=== PATIENT | male | born 1935 | race Caucasian/White ===

== ENCOUNTER 2018-06-09 16:01 | Inpatient (IN) | payer OTHER ==
[2018-06-09 16:33] LABS: PLATELET COUNT 240 10^3/uL (150-400)
--- NOTE | 2018-06-09 16:37 | EDPHY ---
H & P Stated Complaint: Pt found to be bradycardic by staff, c/o light-headed, denies new meds Time Seen by Provider: 06/09/18 16:11 HPI/ROS: CHIEF COMPLAINT: Dizziness, unsteady gait Limitations: Poor historian, no family present HISTORY OF PRESENT ILLNESS: 82-year-old male with diabetes presents with a 2 week history of dizziness and unsteady gait. He arrived in [place] from [place] 2 weeks ago. Onset of dizziness and unsteady gait on arrival. The dizziness occurs with standing and with walking. Also has an unsteady gait and is using a cane. Difficulty doing his usual activities because of dizziness. He also feels that his hands are shaky, which is new for him. No recent illness and no recent change in medications. However, he does not know what medications he takes. No chest pain, shortness of breath or headache. No head injury. No history of cardiopulmonary disease. REVIEW OF SYSTEMS: complete 10 point ROS reviewed and is negative except for the noted elements in the HPI Source: Patient - Personal History Current Tetanus/Diphtheria Vaccine: Yes - Medical/Surgical History Hx Asthma: No Hx Chronic Respiratory Disease: No Hx Diabetes: Yes Hx Cardiac Disease: No Hx Renal Disease: No Hx Cirrhosis: No Hx Alcoholism: No Hx HIV/AIDS: No Hx Splenectomy or Spleen Trauma: No Other PMH: Parkinsons, appendectomy, NIDDM - Social History Smoking Status: Former smoker Alcohol Use: Sober Drug Use: None - Physical Exam Exam: General Appearance: Alert, pleasant, forgetful Eyes: Pupils equal and round, no conjunctival pallor or injection ENT, Mouth: Mucous membranes moist Neck: Normal inspection Respiratory: Lungs are clear to auscultation Cardiovascular: Bradycardia, 2/6 systolic murmur Gastrointestinal: Abdomen is soft and nontender Neurological: Alert, oriented to person and place, resting tremor, nonfocal exam, gait not assessed Skin: Warm and dry Extremities: Normal inspection Psychiatric: Mood and affect normal Constitutional: Initial Vital Signs Temperature (C) 36.8 C 06/09/18 16:09 Heart Rate 38 L 06/09/18 16:09 Respiratory Rate 16 06/09/18 16:09 Blood Pressure 148/70 H 06/09/18 16:09 O2 Sat (%) 97 06/09/18 16:09 O2 Delivery Mode Room Air Allergies/Adverse Reactions: carbamazepine [From Tegretol] Allergy (Verified 06/09/18 16:09) Home Medications: Medication Instructions Recorded Aspirin EC [Aspirin EC 81 mg (*)] 81 mg PO HS 06/09/18 Atorvastatin Calcium [Lipitor 20 20 mg PO HS 06/09/18 mg (*)] Calcium Carbonate [Tums 500MG (*)] 250 mg PO DAILY 06/09/18 DULoxetine [Cymbalta 30 MG (*)] 90 mg PO DAILY 06/09/18 Finasteride [Proscar 5 MG (*)] 5 mg PO HS 06/09/18 [place] Carbonate ER [Eskalith Cr 450 mg PO HS 06/09/18 450 mg (*)] Losartan Potassium [Cozaar 50 mg 50 mg PO HS 06/09/18 (*)] Methylphenidate HCl [Concerta] 54 mg PO DAILY 06/09/18 Modafinil [Provigil] 400 mg PO DAILY 06/09/18 Nateglinide [Nateglinide] 120 mg PO TIDMEAL 06/09/18 Pantoprazole Sodium 40 mg PO DAILY 06/09/18 Polyethylene Glycol 3350 [Miralax 17 gm PO HS 06/09/18 17 gm (*)] Tamsulosin HCl [Flomax 0.4 MG (*)] 0.4 mg PO HS 06/09/18 diphenhydrAMINE [Benadryl 25 MG 25 mg PO DAILY PRN 06/09/18 (*)] metFORMIN HCL [Glucophage 500 mg 1,000 mg PO DAILY 06/09/18 (*)] traZODone [traZODONE 50MG (*)] 75 mg PO HS 06/09/18 Medical Decision Making - Diagnostics EKG Interpretation: EKG interpreted by me reveals sinus bradycardia, rate of 37, no ST or T segment changes. Interpretation: Abnormal EKG Imaging Results: CT scan of the brain read by the radiologist reveals atrophy, no acute infarct or hemorrhage. Imaging: Discussed imaging studies w/ comfort filler Radiologist ED Course/Re-evaluation: This patient presents with a 2 week history of dizziness and unsteady gait. Stat EKG reveals sinus bradycardia, rate 37. This bradycardia is most likely the etiology of his dizziness and unsteady gait. Certainly, his Parkinson's disease may be contributing. Neurologic exam is nonfocal, will obtain a CT scan of the brain to further evaluate. Initial troponin is normal and I do not suspect acute coronary syndrome in this patient. Observation of this patient in the emergency department; satellite project site monitor revealed sinus rhythm throughout, rate 35-60. Blood pressure remained adequate. The hospitalist service was consulted for admission. I consulted Dr. Rigo Villanueva and he will see the patient in the hospital. Differential Diagnosis: Altered mental status including but not limited to hypoglycemia, infectious process, electrolyte abnormality, head injury, CVA, and intoxicants. - Data Points Laboratory Results: Laboratory Results 06/09/18 16:19 06/09/18 16:19 Medications Given: Aspirin Buffered (Aspirin Ec) 81 mg PO HS [facility] Stop: 12/06/18 20:59 Last Admin: 06/09/18 21:56 Dose: 81 mg Atorvastatin Calcium (Lipitor) 20 mg PO HS [facility] Stop: 12/06/18 20:59 Last Admin: 06/09/18 21:54 Dose: 20 mg Calcium Carbonate (Tums) 250 mg PO DAILY [facility] Stop: 12/07/18 08:59 Last Admin: 06/10/18 08:40 Dose: 250 mg Duloxetine HCl (Cymbalta) 90 mg PO DAILY [facility] Stop: 12/07/18 08:59 Last Admin: 06/10/18 08:40 Dose: 90 mg Finasteride (Proscar) 5 mg PO HS [facility] Stop: 12/06/18 20:59 Last Admin: 06/09/18 21:55 Dose: 5 mg Insulin Human Lispro (Humalog Lispro) 0 unit SC TIDMEAL [facility] PRN Reason: Protocol Stop: 12/07/18 07:59 Last Admin: 06/10/18 12:37 Dose: Not Given Losartan Potassium (Cozaar) 50 mg PO HS [facility] Stop: 12/06/18 20:59 Last Admin: 06/09/18 21:54 Dose: 50 mg Melatonin (Melatonin) 3 - 6 mg PO HS PRN PRN Reason: Sleep/Insomnia Stop: 12/07/18 01:41 Last Admin: 06/10/18 02:11 Dose: 6 mg Miscellaneous Medication (Methylphenidate Hcl [Concerta]) 54 mg PO DAILY [facility] Stop: 12/07/18 08:59 Last Admin: 06/10/18 10:28 Dose: Not Given Miscellaneous Medication (Modafinil [Provigil]) 400 mg PO DAILY [facility] Stop: 12/07/18 08:59 Last Admin: 06/10/18 10:28 Dose: Not Given Pantoprazole Sodium (Protonix) 40 mg PO DAILY [facility] Stop: 12/07/18 08:59 Last Admin: 06/10/18 08:41 Dose: 40 mg Senna/Docusate Sodium (Senokot-S) 1 - 2 tab PO BID [facility] PRN Reason: Protocol Stop: 12/06/18 20:59 Last Admin: 06/10/18 09:59 Dose: Not Given Tamsulosin HCl (Flomax) 0.4 mg PO HS [facility] Stop: 12/06/18 20:59 Last Admin: 06/09/18 21:56 Dose: 0.4 mg Trazodone HCl (Trazodone) 75 mg PO HS [facility] Stop: 12/06/18 20:59 Last Admin: 06/09/18 21:55 Dose: 75 mg Discontinued Medications Sodium Chloride (Ns) 1,000 mls @ 75 mls/hr IV CONT [facility] Stop: 06/10/18 08:19 Last Admin: 06/09/18 20:01 Dose: 1,000 mls Point of Care Test Results: Chemistry 06/09/18 16:23 POC Troponin I 0.00 ng/mL ng/mL (0.00-0.08) Departure - Departure Disposition: [facility] Acute Condition: Fair
[2018-06-09] MEDS ORDERED: ACETAMINOPHEN 325 MG TAB PO PRN (17:46)
[2018-06-09] MEDS ORDERED: ONDANSETRON 4 MG/2 ML VIAL IVP PRN (17:46)
[2018-06-09] MEDS ORDERED: ONDANSETRON DISINTEGRATING 4 MG TAB PO PRN (17:46)
[2018-06-09] MEDS ORDERED: LACTULOSE 20 GM/30 ML UDCUP PO PRN (18:02)
[2018-06-09] MEDS ORDERED: POLYETHYLENE GLYCOL 3350 17 GM PKT PO PRN (18:02)
[2018-06-09] MEDS ORDERED: BISACODYL 10 MG SUPP PR PRN (18:02)
[2018-06-09] MEDS ORDERED: MAGNESIUM HYDROXIDE 30 ML UDCUP PO PRN (18:02)
--- NOTE | 2018-06-09 18:02 | PDGENHP ---
History and Physical - Chief Complaint Dizziness, unsteady gait - History of Present Illness This is an 82 y/o male w/hx of NIDDM, Parkinson's w/action tremor however not challenged w/Aricept b/c he refused, bipolar disorder, ADD and neuropathy who presents to the ED w/his daughter c/o 2 weeks worth of dizziness and unsteady gait while upright and ambulating. He moved from [place] 2 weeks ago and reports ever since being in [place], these symptoms have been present. Before , he used his cane sparingly but apparently while in [place], he was told by healthcare personnel to use it more often than he is. Now he reports needing the cane when he is upright and moving around consistently. He has difficulty performing normal tasks like taking his medications; for the last 4 days, he has not taken his home medications. Endorses productive cough w/white colored sputum and nasal congestion. Endorses constipation. Denies CP, palpitations, nausea, vomiting, diarrhea, fever or chills. He is being admitted for further testing and monitoring. History Information - Allergies/Home Medication List Allergies/Adverse Reactions: carbamazepine [From Tegretol] Allergy (Verified 06/09/18 16:09) Home Medications: Aspirin EC [Aspirin EC 81 mg (*)] 81 mg PO HS 06/09/18 [Last Taken Unknown] Atorvastatin Calcium [Lipitor 20 mg (*)] 20 mg PO HS 06/09/18 [Last Taken ] Calcium Carbonate [Tums 500MG (*)] 250 mg PO DAILY 06/09/18 [Last Taken 05/26/18 ] DULoxetine [Cymbalta 30 MG (*)] 90 mg PO DAILY 06/09/18 [Last Taken 05/26/18] Finasteride [Proscar 5 MG (*)] 5 mg PO HS 06/09/18 [Last Taken 05/26/18] [place] Carbonate ER [Eskalith Cr 450 mg (*)] 450 mg PO HS 06/09/18 [Last Taken 06/08/18 21:00] Losartan Potassium [Cozaar 50 mg (*)] 50 mg PO HS 06/09/18 [Last Taken 05/26/18] Methylphenidate HCl [Concerta] 54 mg PO DAILY 06/09/18 [Last Taken 05/26/18] Modafinil [Provigil] 400 mg PO DAILY 06/09/18 [Last Taken 05/26/18] Nateglinide [Nateglinide] 120 mg PO TIDMEAL 06/09/18 [Last Taken 05/26/18] Pantoprazole Sodium 40 mg PO DAILY 06/09/18 [Last Taken 05/26/18] Polyethylene Glycol 3350 [Miralax 17 gm (*)] 17 gm PO HS 06/09/18 [Last Taken Unknown] Tamsulosin HCl [Flomax 0.4 MG (*)] 0.4 mg PO HS 06/09/18 [Last Taken 05/26/18] diphenhydrAMINE [Benadryl 25 MG (*)] 25 mg PO DAILY PRN 06/09/18 [Last Taken Unknown] metFORMIN HCL [Glucophage 500 mg (*)] 1,000 mg PO DAILY 06/09/18 [Last Taken ] traZODone [traZODONE 50MG (*)] 75 mg PO HS 06/09/18 [Last Taken 06/08/18 21:00] I have personally reviewed and updated: family history, medical history, social history, surgical history - Past Medical History diabetes type 2, psychiatric history (Bipolar, ADD) Additional medical history: Possible Parkinson's w/action tremor. Neuropathy. BPH - Surgical History Reports: appendectomy, hernia repair, spinal surgery - Family History Positive for: stroke - Social History Smoking Status: Former smoker Alcohol Use: Occasionally Drug Use: None Additional social history: Moved from [place] 2 weeks ago. . Daughter at bedside w/pt who lives in [place] and employed as a PA at [employer]. Review of Systems Review of Systems: ROS: 10pt was reviewed & negative except for what was stated in HPI & below Physical Exam Physical Exam: Lab data and imaging were reviewed. Case discussed w/admitting physician Dr. Zohaib Álvarez and ED Dr. Clotilde Vila. EKG: Sinus bradycardia Head CT WO contrast: no acute intracranial findings; diffuse cerebral atrophy w/ periventricular and subcortical low attenuation consistent w/chronic microvascular ischemic gliosis Temp Pulse Resp BP Pulse Ox 36.8 C 49 L 18 125/64 H 98 06/09/18 16:09 06/09/18 17:23 06/09/18 17:23 06/09/18 17:23 06/09/18 17:23 Constitutional: appears nourished, uncomfortable Eyes: PERRL, anicteric sclera, EOMI Ears, Nose, Mouth, Throat: ears appear normal, no oral mucosal ulcers, dry mucous membranes, hard of hearing Cardiovascular: systolic murmur (Known murmur), bradycardia Peripheral Pulses: 2+: dorsalis-pedis (R), dorsalis-pedis (L) Respiratory: no respiratory distress, no rales or rhonchi, clear to auscultation Gastrointestinal: normoactive bowel sounds, soft, non-tender abdomen, no palpable masses Genitourinary: no bladder fullness, no bladder tenderness Skin: warm, normal color, no rashes or abrasions, no fluctuance, no induration, No mottled Musculoskeletal: full muscle strength, no muscle tenderness, normal joint ROM, no joint effusions, abnormal gait (I did not ask the pt to ambulate for me) Neurologic: AAOx3, sensation intact bilaterally, CN II-XII Intact Psychiatric: not encephalopathic, thought process linear, anxious, poor memory Lymph, Heme, Immunologic: no cervical LAD, no supraclavicular LAD Lab Data & Imaging Review 06/09/18 16:19 06/09/18 16: WBC 8.54 10^3/uL (3.80-9.50) 06/09/18 16: RBC 3.96 10^6/uL (4.40-6.38) L 06/09/18 16:19 Hgb 12.8 g/dL (13.7-17.5) L 06/09/18 16:19 Hct 39.1 % (40.0-51.0) L 06/09/18 16:19 MCV 98.7 fL (81.5-99.8) 06/09/18 16:19 MCH 32.3 pg (27.9-34.1) 06/09/18 16: MCHC 32.7 g/dL (32.4-36.7) 06/09/18 16:19 RDW 13.3 % (11.5-15.2) 06/09/18 16:19 Plt Count 240 10^3/uL (150-400) 06/09/18 16: MPV 9.5 fL (8.7-11.7) 06/09/18 16:19 Neut % (Auto) 76.2 % (39.3-74.2) H 06/09/18 16:19 Lymph % (Auto) 11.4 % (15.0-45.0) L 06/09/18 16:19 [place] % (Auto) 7.8 % (4.5-13.0) 06/09/18 16:19 Eos % (Auto) 4.0 % (0.6-7.6) 06/09/18 16:19 Baso % (Auto) 0.2 % (0.3-1.7) L 06/09/18 16:19 Nucleat RBC Rel Count 0.0 % (0.0-0.2) 06/09/18 16:19 Absolute Neuts (auto) 6.51 10^3/uL (1.70-6.50) H 06/09/18 16:19 Absolute Lymphs (auto) 0.97 10^3/uL (1.00-3.00) L 06/09/18 16:19 Absolute Monos (auto) 0.67 10^3/uL (0.30-0.80) 06/09/18 16:19 Absolute Eos (auto) 0.34 10^3/uL (0.03-0.40) 06/09/18 16:19 Absolute Basos (auto) 0.02 10^3/uL (0.02-0.10) 06/09/18 16:19 Absolute Nucleated RBC 0.00 10^3/uL (0-0.01) 06/09/18 16:19 Immature Gran % 0.4 % (0.0-1.1) 06/09/18 16:19 Immature Gran # 0.03 10^3/uL (0.00-0.10) 06/09/18 16:19 Sodium 139 mEq/L (135-145) 06/09/18 16:19 Potassium 5.4 mEq/L (3.5-5.2) H 06/09/18 16:19 Chloride 105 mEq/L (97-110) 06/09/18 16:19 Carbon Dioxide 19 mEq/l (22-31) L 06/09/18 16:19 Anion Gap 15 mEq/L (6-14) H 06/09/18 16:19 BUN 24 mg/dL (7-23) H 06/09/18 16:19 Creatinine 1.2 mg/dL (0.7-1.3) 06/09/18 16:19 Estimated GFR 58 06/09/18 16:19 Glucose 130 mg/dL (70-100) H 06/09/18 16:19 Calcium 10.1 mg/dL (8.5-10.4) 06/09/18 16: Magnesium 2.2 mg/dL (1.6-2.3) 06/09/18 16:19 POC Troponin I 0.00 ng/mL (0.00-0.08) 06/09/18 16:23 TSH 1.210 uIU/mL (0.465-4.680) 06/09/18 16: Specimen Hemolysis 171 06/09/18 16: Assessment & Plan Plan: 82 y/o male presenting w/ 2 weeks worth of dizziness while upright and ambulating w/associated unsteady gait requiring continuous use of his cane. He is unable to clarify his dizzy spells - the room is neither spinning nor is it a syncope-like event. Described as feeling "woozy." Initial presentation to the ED he was bradycardiac at 38 and continues to be throughout his stay being in 35-40s range. He has not taken any of his home medications for the last 4 days because of his tremor. He is unable to bring the cup to his mouth he shakes too much. His current vitals are the following: BP 119/66, HR 41, Resp 18, 94% RA, 36.6c #Dizziness w/unknown etiology -CXR to r/o infiltrate, effusion, PNA: he reports productive cough w/white sputum and nasal congestion however I did not appreciate this while auscultating his lungs. CTAB. Also, afebrile and no high white count. -Suspect a cardiac component to his dizziness, especially in relationship w/his bradycardia. Cards consulted and I spoke to Dr. Villanueva who requested pt be NPO at midnight tonight for possible pacer in AM. He will evaluate the pt in AM. -Repeat EKG tonight -Echo in AM -Neurology consulted -PT/OT to evaluate and treat -Virgin level pending to r/o toxicity -TSH pending -Orthostatic vitals once #Bradycardia -See actions above -He is not on any BB or CCB. He does take a statin and ARB not because of HTN/ HLD but for his DM -Cont tele/PCU monitoring -Cards will evaluate in AM w/possibility of pacer -ECHO in AM -Lipid panel in AM -Orthostatic vitals once #Unsteady gait -It appears this has been a problem longer than 2 weeks as the pt has an appointment scheduled w/Dr. Herrera in August 2018. Associated w/his gait issues are his tremors which once again, seems to be a chronic issue and not specifically r/t to this episode but could be exacerbated by. -Neurology consulted -PT/OT to evaluate and treat #NIDDM: on PO DM medications. Typically, his A1c is <6.5% -A1c pending -ISS initiated while in house, TID glucose checks prior to meals. Holding PO medications. #Bipolar/ADD -Virgin level pending -Cont home medications Diet: Regular VTE ppx: SCDs Code: Full Dispo: Admit to inpatient
[2018-06-09] MEDS ORDERED: D50W 25 GM/50 ML SYR IVP PRN (18:04)
--- NOTE | 2018-06-09 18:49 | HOSPPROG ---
Hospitalist Progress Note Assessment/Plan: I have personally seen and evaluated Irvin Mims. I agree with the assessment and plan as outline by FATBACK TRIMMER, Nathalie Del Toro, in a separate note. Objective: Vital Signs Temp Pulse Resp BP Pulse Ox 36.6 C 41 L 18 119/66 94 06/09/18 18:03 06/09/18 18:03 06/09/18 18:03 06/09/18 18:03 06/09/18 18:03 ICD10 Worksheet Patient Problems: Problems Problem Status Onset Tremor Acute
[2018-06-09] MEDS ORDERED: NS 1,000 ML IV SCH (19:00)
[2018-06-09] MEDS ORDERED: LOSARTAN POTASSIUM 50 MG TAB PO SCH (21:00)
--- NOTE | 2018-06-09 21:14 | CPEKG ---
Test Reason : OPEN Blood Pressure : / mmHG Vent. Rate : 037 BPM Atrial Rate : 037 BPM P-R Int : 134 ms QRS Dur : 092 ms QT Int : 420 ms P-R-T Axes : -44 -09 050 degrees QTc Int : 330 ms Sinus bradycardia Confirmed by Jannette Cummings ([id number]) on 06/09/2018 9:14:07 PM Referred By: JANNETTE CUMMINGS Confirmed By:Jannette Cummings
[2018-06-09] MEDS: ATORVASTATIN CALCIUM 20 MG TAB PO SCH (21:54)
[2018-06-09] MEDS: FINASTERIDE 5 MG TAB PO SCH (21:55)
[2018-06-09] MEDS: traZODone 50 MG TAB PO SCH (21:55)
[2018-06-09] MEDS: TAMSULOSIN HCL 0.4 MG CAP PO SCH (21:56)
[2018-06-09] MEDS: SENNOSIDES/DOCUSATE SODIUM TAB PO SCH (21:56)
[2018-06-09] MEDS: ASPIRIN EC 81 MG TAB PO SCH (21:56)
[2018-06-10] MEDS: MELATONIN 3 MG TAB PO PRN ×2 (02:11→22:58)
[2018-06-10 04:35] LABS: PLATELET COUNT 250 10^3/uL (150-400)
[2018-06-10] MEDS: INSULIN LISPRO 100 UNIT/ML SC SCH ×3 (07:48→17:30)
[2018-06-10] MEDS: DULoxetine 30 MG CAP PO SCH (08:40)
[2018-06-10] MEDS: CALCIUM CARBONATE 500 MG CHEWABLE TAB PO SCH (08:40)
[2018-06-10] MEDS: PANTOPRAZOLE SODIUM 40 MG TAB PO SCH (08:41)
[2018-06-10] MEDS ORDERED: MODAFINIL 400 MG PO SCH (09:00)
--- NOTE | 2018-06-10 09:14 | PDCARCONS ---
Cardiology Consult Reason for Consult: Bradycardia. Chief Complaint: Dizziness, unsteady gait. Requesting Physician: Dr. Deja Del Toro. History of Present Illness: This is a pleasant 82-year-old male seen in consultation on the progressive care unit. His past medical history is significant for type 2 diabetes mellitus. Additionally, he has a long-standing tremor without a diagnosis of Parkinson's disease. Furthermore, he has a history of bipolar disorder. He has been treated with lithium as well as stimulant medications for about 20 years now. He is a prior resident of [place]. He moved to the local area here about 3 weeks ago following the of his . Specifically, he wanted to be near his daughter who is a physician's bookkeeper assistant with the gastroenterology group. Apparently, his tremor has been significant enough that it has prohibited him from taking his medications for the last 5-7 days. He recently established care with a local primary care physician. During a recent office visit it was noted that his heart rates were in the 30s. Additionally, over the last several weeks he has had symptoms of worsening gait instability and fatigue. As result he has had to start walking with his cane again. He has also noted a sensation of pruritus. He denies fever, chills and sweats. He has had a slight nonproductive cough and symptoms of palpitations. In the emergency department he was noted to be bradycardic with heart rates in the 30s. His initial electrocardiogram demonstrated sinus bradycardia with a heart rate of 37 beats per minute. Was noted to have low voltages in the limb leads. There were no significant ST or T changes. Overnight he was placed on telemetry and monitored. A lithium level returned at 2.0 mg/dL. As result this medication was held. He was hydrated overnight. His heart rates have improved and currently his heart rates are in the 50s. He denies symptoms of chest pain. He notes no shortness of breath. He denies orthopnea and PND. He has not had syncope or presyncope. History Information - Allergies/Home Medication List Allergies/Adverse Reactions: carbamazepine [From Tegretol] Allergy (Verified 06/09/18 16:09) Home Medications: Aspirin EC [Aspirin EC 81 mg (*)] 81 mg PO HS 06/09/18 [Last Taken Unknown] Atorvastatin Calcium [Lipitor 20 mg (*)] 20 mg PO HS 06/09/18 [Last Taken ] Calcium Carbonate [Tums 500MG (*)] 250 mg PO DAILY 06/09/18 [Last Taken 05/26/18 ] DULoxetine [Cymbalta 30 MG (*)] 90 mg PO DAILY 06/09/18 [Last Taken 05/26/18] Finasteride [Proscar 5 MG (*)] 5 mg PO HS 06/09/18 [Last Taken 05/26/18] [place] Carbonate ER [Eskalith Cr 450 mg (*)] 450 mg PO HS 06/09/18 [Last Taken 06/08/18 21:00] Losartan Potassium [Cozaar 50 mg (*)] 50 mg PO HS 06/09/18 [Last Taken 05/26/18] Methylphenidate HCl [Concerta] 54 mg PO DAILY 06/09/18 [Last Taken 05/26/18] Modafinil [Provigil] 400 mg PO DAILY 06/09/18 [Last Taken 05/26/18] Nateglinide [Nateglinide] 120 mg PO TIDMEAL 06/09/18 [Last Taken 05/26/18] Pantoprazole Sodium 40 mg PO DAILY 06/09/18 [Last Taken 05/26/18] Polyethylene Glycol 3350 [Miralax 17 gm (*)] 17 gm PO HS 06/09/18 [Last Taken Unknown] Tamsulosin HCl [Flomax 0.4 MG (*)] 0.4 mg PO HS 06/09/18 [Last Taken 05/26/18] diphenhydrAMINE [Benadryl 25 MG (*)] 25 mg PO DAILY PRN 06/09/18 [Last Taken Unknown] metFORMIN HCL [Glucophage 500 mg (*)] 1,000 mg PO DAILY 06/09/18 [Last Taken ] traZODone [traZODONE 50MG (*)] 75 mg PO HS 06/09/18 [Last Taken 06/08/18 21:00] I have personally reviewed and updated: family history, medical history, social history, surgical history Past Medical History: - Past Medical History Additional medical history: Type 2 diabetes mellitus. Bipolar disorder. History of tremor without diagnosis of Parkinson's disease. Peripheral neuropathy. Benign prosthetic hypertrophy. - Surgical History Additional surgical history: Prior appendectomy with complications of wound dehiscence. History of hernia repair. History of back surgery. - Social History Smoking Status: Former smoker Alcohol Use: Occasionally Drug Use: None Physical Exam Physical Exam: Temp Pulse Resp BP Pulse Ox 36.6 C 52 L 20 144/68 H 90 L 06/10/18 07:10 06/10/18 07:15 06/10/18 07:10 06/10/18 07:10 06/10/18 07:10 Constitutional: no apparent distress, appears nourished, not in pain Eyes: PERRL, anicteric sclera, EOMI Ears, Nose, Mouth, Throat: moist mucous membranes, hearing normal, ears appear normal, no oral mucosal ulcers Cardiovascular: regular rate and rhythym, systolic murmur (2/6 mid peaking systolic murmur left sternal border), No edema Peripheral Pulses: 2+: carotid (R), carotid (L) Respiratory: no respiratory distress, no rales or rhonchi, clear to auscultation Gastrointestinal: normoactive bowel sounds, soft, non-tender abdomen, no palpable masses Genitourinary: no bladder fullness, no bladder tenderness Skin: warm, normal color, no rashes or abrasions, no fluctuance, no induration, No mottled Musculoskeletal: full muscle strength, no muscle tenderness, normal joint ROM, no joint effusions Psychiatric: interacting appropriately, not anxious, not encephalopathic, thought process linear Lymph, Heme, Immunologic: no cervical LAD, no supraclavicular LAD Lab and Imaging 06/10/18 04:12 06/10/18 04:12 WBC 8.72 10^3/uL (3.80-9.50) 06/10/18 04:12 RBC 3.76 10^6/uL (4.40-6.38) L 06/10/18 04:12 Hgb 12.1 g/dL (13.7-17.5) L 06/10/18 04:12 Hct 37.4 % (40.0-51.0) L 06/10/18 04:12 MCV 99.5 fL (81.5-99.8) 06/10/18 04:12 MCH 32.2 pg (27.9-34.1) 06/10/18 04:12 MCHC 32.4 g/dL (32.4-36.7) 06/10/18 04:12 RDW 13.2 % (11.5-15.2) 06/10/18 04:12 Plt Count 250 10^3/uL (150-400) 06/10/18 04:12 MPV 9.7 fL (8.7-11.7) 06/10/18 04:12 Neut % (Auto) 73.1 % (39.3-74.2) 06/10/18 04:12 Lymph % (Auto) 13.6 % (15.0-45.0) L 06/10/18 04:12 [place] % (Auto) 7.7 % (4.5-13.0) 06/10/18 04:12 Eos % (Auto) 5.0 % (0.6-7.6) 06/10/18 04:12 Baso % (Auto) 0.3 % (0.3-1.7) 06/10/18 04:12 Nucleat RBC Rel Count 0.0 % (0.0-0.2) 06/10/18 04:12 Absolute Neuts (auto) 6.36 10^3/uL (1.70-6.50) 06/10/18 04:12 Absolute Lymphs (auto) 1.19 10^3/uL (1.00-3.00) 06/10/18 04:12 Absolute Monos (auto) 0.67 10^3/uL (0.30-0.80) 06/10/18 04:12 Absolute Eos (auto) 0.44 10^3/uL (0.03-0.40) H 06/10/18 04:12 Absolute Basos (auto) 0.03 10^3/uL (0.02-0.10) 06/10/18 04:12 Absolute Nucleated RBC 0.00 10^3/uL (0-0.01) 06/10/18 04:12 Immature Gran % 0.3 % (0.0-1.1) 06/10/18 04:12 Immature Gran # 0.03 10^3/uL (0.00-0.10) 06/10/18 04:12 Sodium 141 mEq/L (135-145) 06/10/18 04:12 Potassium 4.5 mEq/L (3.5-5.2) 06/10/18 04:12 Chloride 110 mEq/L (97-110) 06/10/18 04:12 Carbon Dioxide 21 mEq/l (22-31) L 06/10/18 04:12 Anion Gap 10 mEq/L (6-14) 06/10/18 04:12 BUN 24 mg/dL (7-23) H 06/10/18 04:12 Creatinine 1.1 mg/dL (0.7-1.3) 06/10/18 04:12 Estimated GFR > 60 06/10/18 04:12 Glucose 94 mg/dL (70-100) 06/10/18 04:12 POC Glucose 92 mg/dL (70-100) 06/10/18 07:12 Hemoglobin A1c 6.3 % (4.0-6.0) H 06/09/18 16:19 Estim Average Glucose 134 mg/dL (68-126) H 06/09/18 16:19 Calcium 10.1 mg/dL (8.5-10.4) 06/10/18 04:12 Magnesium 2.2 mg/dL (1.6-2.3) 06/09/18 16:19 Total Bilirubin 0.5 mg/dL (0.1-1.4) 06/10/18 04:12 AST 29 IU/L (17-59) 06/10/18 04:12 ALT 45 IU/L (21-72) 06/10/18 04:12 Alkaline Phosphatase 84 IU/L (38-126) 06/10/18 04:12 POC Troponin I 0.00 ng/mL (0.00-0.08) 06/09/18 16:23 Total Protein 6.7 g/dL (6.3-8.2) 06/10/18 04:12 Albumin 4.0 g/dL (3.5-5.0) 06/10/18 04:12 Triglycerides 93 mg/dL (40-150) 06/10/18 04:12 Cholesterol 99 mg/dL (140-220) L 06/10/18 04:12 Cholesterol Risk Factr 0.5 (0.2-1.0) 06/10/18 04:12 LDL Cholesterol, Calc 43 mg/dL (80-100) L 06/10/18 04:12 LDL Risk Factor 0.6 (0.2-1.0) 06/10/18 04:12 VLDL Cholesterol 19 mg/dL (8-25) 06/10/18 04:12 Non-HDL Cholesterol 62 mg/dL (90-129) L 06/10/18 04:12 HDL Cholesterol 37 mg/dL (40-65) L 06/10/18 04:12 LDL/HDL Ratio 1.17 RATIO (1.00-3.64) 06/10/18 04:12 Cholesterol/HDL Ratio 2.68 RATIO (1.00-4.97) 06/10/18 04:12 TSH 1.210 uIU/mL (0.465-4.680) 06/09/18 16:19 Specimen Hemolysis 178 06/09/18 16:56 [place] 2.0 mEq/L (0.6-1.2) H 06/09/18 16:56 A/P Assessment: Bradycardia. He presented with profound bradycardia. It is not entirely clear whether not this was symptomatic. He has had symptoms of gait instability and fatigue which I think are unlikely to be related to the bradycardia. Additionally, I do not think that the bradycardia is a primary electrical disorder. I think this is secondary to toxic levels of lithium and possibly contributed to by the recent withdrawal of his stimulant medications. Following hydration overnight his heart rates have improved. Currently his heart rates are in the 50s. Plan: 1. At the present time I do not think he requires placement of a permanent pacemaker. 2. I have written for him to have a diet. 3. He will have an echocardiogram today. 4. We will continue to hold his lithium for the time being. 5. I would like to get old records from his prior critical care nurse specialist and his forensic psychiatrist. 6. I think it would be worth having conversation with his psychiatrist regarding an alternate medication for the patient's bipolar disorder or, at the minimum, an alternate dosing regimen for his lithium. Review of Systems Review of Systems: - Review of Systems Constitutional: no symptoms reported EENTM: no symptoms reported Respiratory: no symptoms reported Cardiac: see HPI Gastrointestinal/Abdominal: no symptoms reported Genitourinary: no symptoms Musculoskelatal: see HPI Skin: no symptoms Neurological: see HPI Hematologic/Lymphatic: no symptoms reported Immunologic/allergic: no symptoms reported All Other Systems: Reviewed and Negative
[2018-06-10] MEDS: SENNOSIDES/DOCUSATE SODIUM TAB PO SCH (09:59)
--- NOTE | 2018-06-10 10:25 | ECHO ---
[email or web address] [address] [address] Main: [phone] Echocardiography Examination Transthoracic Name: JOSE HOSKINS MR#: [id number] Study Date: 06/10/2018 Study Time: 09:40 AM Date of : 1935 Age: 82 year(s) Height: 172.7 cm (68 in.) Weight: 69.4 kg (153 lb.) BSA: 1.82 m2 Gender: Male Examination: Echo Contrast: Image Quality: Adequate Rhythm: Heart Rate: BP: 144 mmHg/68 mmHg Indication: bradycardic, Cardiac: dizziness and/or near-syncope Procedure Staff Referring Physician: Tour Agent: Flaca Gusman [facility] Reading Physician: Rigo Villanueva MD Requesting Provider: Ordering Physician: Deja Del Toro Indication: bradycardic, Cardiac: dizziness and/or near-syncope Measurements Chambers AV/MV Label Value Normal Value Label Value Normal Value LVOTd 2.1 cm (1.9cm - 2.1cm) AV PGmax 44 mmHg LVOT VTI 33.3 cm (18cm - 22cm) AV PGmean 25 mmHg LVDd, 2D 4.5 cm (4.2cm - 5.9cm) AV Vmax 3.3 m/s LVDs, 2D 2.6 cm (2.1cm - 4cm) LUZ (VTI) 1.7 cm2 IVSd, 2D 1.3 cm (0.6cm - 1.1cm) MV E Vmax 0.61 m/s LVPWd, 2D 1.2 cm (0.6cm - 1cm) MV A Vmax 1.03 m/s LVEF, BP 62 % (55% - 70%) MV E/A 0.59 LVEF, 2D 74 % (54% - 74%) MV E/E' lateral 6.9 LVOT PGmean 5 mmHg MV E/E' septal 7.5 (0.45 - 1.25) LVOT Vmean 1.1 m/s MV DT 310 ms LA Volume, BP 65 ml (18ml - 58ml) MV E' septal 0.08 m/s LADs, 2D 4.3 cm (3cm - 4cm) MV PHT 0.1 s LAESV index, BP 35.7 ml/m2 MVA PHT 2.2 cm2 RA Area 20 cm2 MV E' lateral 0.09 m/s Additional Vessels MV E/E' mean 7.18 Label Value Normal Value MV PHT 102 ms AoAsc 3.6 cm MV E' mean 0.08 m/s AoRoot, 2D 3.5 cm (1.4cm - 2.6cm) TV/PV IVC 1.4 cm (1.2cm - 2.3cm) Label Value Normal Value Patient: JOSE HOSKINS Study Date: 06/10/2018 Page 1 of 3 09:40 AM RA Pressure 5 mmHg RVSP 37 mmHg TR Pmax 32 mmHg TR Vmax 2.85 m/s PV PGmax 7 mmHg PV Vmax, Caliper 1.33 m/s (0.6m/s - 0.9m/s) Conclusions Normal left ventricular size and systolic function. LVEF estimated at 60-65% and calculated at 60 2% by Balderas's. Mild concentric left ventricular hypertrophy without regional wall motion abnormalities. Grade 2 diastolic dysfunction. Mild biatrial enlargement. Normal-appearing mitral valve with mild mitral regurgitation. Trileaflet aortic valve with moderate sclerosis and mild to moderate aortic stenosis. The mean transaortic pressure gradient is 20 mmHg. Normal appearing tricuspid valve with mild tricuspid regurgitation. RVSP mildly elevated at 37 mmHg. Trivial pericardial effusion. No prior study available in our system. Findings Left Ventricle: Left ventricle is normal in size. Normal global systolic left ventricular function. The ejection fraction, measured by Simpsons method, is 62 %. EF range is estimated at 60 % - 65 %. There is mild concentric left ventricular hypertrophy. There are no regional wall motion abnormalities. Grade II Diastolic Dysfunction. Right Ventricle: Normal size right ventricle. Right ventricular systolic function is normal. Left Atrium: The left atrium is mildly dilated. Right Atrium: The right atrium is mildly dilated. Mitral Valve: Mitral valve appears structurally normal. Mild mitral regurgitation. No mitral valve stenosis. There is mild mitral thickening. Aortic Valve: Aortic leaflets are structurally normal. Mild aortic regurgitation is present. There is moderate aortic stenosis. Aortic leaflets exhibit calcification. Tricuspid Valve: Tricuspid valve leaflets are structurally normal. Mild tricuspid regurgitation. No tricuspid valve stenosis. Right Ventricular systolic pressure is measured at 37 mmHg. Pulmonary artery pressure normal. Pulmonic Valve: Pulmonic leaflets are structurally normal. Mild pulmonic valve regurgitation is present. Aorta: The aortic root size in 2D measures 3.5 cm. The ascending aorta measures 3.6 cm. Aorta Measurements AoRoot, 2D is 3.5 cm. IVC: The inferior vena cava is normal in size. Pericardium: Trivial pericardial effusion. Exam Details Procedure Ordered: Echo Procedure Status: Routine study Image Quality: Adequate Facility Location: Cardiac Echo 1 Patient: JOSE HOSKINS Study Date: 06/10/2018 Page 2 of 3 09:40 AM (No Signature Object) Patient: JOSE HOSKINS Study Date: 06/10/2018 Page 3 of 3 09:40 AM [id number]
[2018-06-10] MEDS: METHYLPHENIDATE HCL 54 MG PO SCH (10:28)
--- NOTE | 2018-06-10 10:33 | HOSPPROG ---
Hospitalist Progress Note Assessment/Plan: DIAGNOSES: * Acute lithium toxicity manifest as tremors, confusion, dizziness * Sinus bradycardia; I agree with Cardiology that this is not likely the cause of his symptoms and would not at this time recommend pacemaker placement * Bipolar disorder * Diabetes mellitus * ADD * Benign essential Hypertension * Peripheral neuropathy PLANS: * Continue to monitor on cardiac EKG * Continue to hold lithium and repeat level in the morning; resume when in appropriate range with dosing reconsidered * Will have pharmacy review his medicine list for any medicines that interact with lithium, ? Losartan, others * PT/OT assessments * We are attempting to get records from his physicians in [place] regarding previous lithium levels, diabetes care, any cardiology issues Seen by me on hospitalist rounds as well as multidisciplinary rounds I reviewed in detail today with Dr. Haresh Villanueva of Cardiology SUBJECTIVE: Feels a bit bewildered but less dizzy today OBJECTIVE Vitals reviewed: Pulse has been steady in the 50s to low 60s, otherwise stable vitals without fever Orthostatic vital signs were checked and are normal Sales Service Manager, my review: Mild sinus bradycardia Exam: alert oriented relaxed Neurologic: Some memory deficit otherwise good mentation, no tremor skin warm dry color ok resps not labored lungs clear BSs heart regular abd soft nondistended nontender, bowel sounds present limbs warm, no edema iv site ok Lab data: Yesterday's lithium level was 2.0 And anion gap is better BUN remains elevated Potassium is normalized Liver panel is normal CBC stable Objective: Vital Signs Temp Pulse Resp BP Pulse Ox 36.6 C 52 L 20 144/68 H 90 L 06/10/18 07:10 06/10/18 07:15 06/10/18 07:10 06/10/18 07:10 06/10/18 07:10 Laboratory Results 06/10/18 04:12 06/10/18 04:12 06/09/18 06/10/18 06/11/18 06:59 06:59 06:59 Intake Total 1070 Balance 1070 - Time Spent With Patient Time Spent with Patient: greater than 35 minutes Time Spent with Patient: Greater than 35 minutes spent on this patients care, greater than 50% of time spent counseling, educating, and coordinating care regarding the above mentioned plan. ICD10 Worksheet Patient Problems: Problems Problem Status Onset Tremor Acute - ICD10 Problem Qualifiers (1) Tremor
--- NOTE | 2018-06-10 11:34 | PDMN ---
Medical Necessity Medical necessity: Pt meets IP criteria per DRIVER OPERATOR & MCG M-152; est los >2 mn for eval/tx of ongoing dizziness w/bradycardia & unsteady gait; admit for further workup/monitoring, Cardiology consult w/possible pacer placement, Neuro consult & therapies; comorbid advanced age, diabetes, possible Parkinsons; per H&P & order 06/09/18
--- NOTE | 2018-06-10 13:39 | GCON ---
[f rep st] CONSULTATION NEUROLOGIC CONSULTATION REFERRING PHYSICIAN: Zohaib Álvarez DO HISTORY: The patient is an 82-year-old gentleman who I am asked to see in neurologic consultation re garding tremor. History is taken from the patient who is able to provide some history, but his daugh bianca, who is a physician radiology practitioner assistant, is a very good historian and able to clarify some of the details a bout his situation. I have also reviewed all of the medical records. Basically, he has dealt with s ome degree of tremor over the past 2 years. He was living in [place] and had seen a neurologist, as we ll as a movement disorder specialist there, with the feeling that this was more than likely a tremor and not idiopathic Parkinson disease, but they had recommended a dopamine transporter scan, for which he was too claustrophobic to complete the study. There were historically changes that his daughter says have involved his walking with shuffling or shortening of the gait in this similar timeframe. S he says he has always had some tendency to tilt to one side or the other, and often does not swing th e left arm when he walks, but how much of a major change that is is harder to say, she says. Cogniti vely, there have also been concerns about short-term memory and a general feeling that there is some mild impairment, although he has still functioned more or less independently. His is [facility] and his daughter has had him come to this area where he is currently living, with the hopes of bet bianca monitoring his progress. What prompted this hospitalization is the fact that he was reaching the point of hardly being able to control his hands because of tremor. Just taking his medications was becoming very difficult. He has a history of bipolar illness and longstanding use of various psychoa ctive medications, specifically lithium. He also has been diagnosed with an attention deficit proble m, for which Psychiatry has worked with him in [place] apparently, and he has been treated with modaf inil for some of his fatigue and attention issues, as well as Concerta. He has not been taking that for the past few days. From the patient's perspective, it is hard to get a clear answer as to how mu ch this actually helps him, and his daughter confirms that there is uncertainty with that regard. Coming into the hospital, he was taking aspirin, atorvastatin, calcium, Cymbalta, finasteride, and li thium, as well as losartan, methylphenidate, modafinil, pantoprazole, tamsulosin, Benadryl as needed, metformin, and trazodone had recently been added to help him with his insomnia in the last month or so, and that was not really very effective. Historically, he has a history of type 2 diabetes and th e other medical problems as noted. There has also been some neuropathy and BPH. History of a more r emote spine surgery in the lumbar region. Family history of stroke. The patient did smoke in the in st. No alcohol or drug abuse. PHYSICAL EXAM: VITAL SIGNS: Blood pressure is 124/51, pulse of 50. There have been lower heart rat es documented, even into the 30s, which was really part of the concern yesterday that led to hospital ization. In the short term, it appears that pacemaker is probably not indicated, and Cardiology is f ollowing him. At 12:15 today, there is a documented pulse rate of 37, but 50 is the more recent abou t 15 minutes. He is well developed, sitting up, eating his breakfast this morning. I am able to communicate with h im. He is not particularly bradykinetic and does not have markedly decreased facial expression. I d o not pear picker significant rigidity in the extremities. The muscle power is mildly diminished. There is a fairly mild postural and action tremor evident on [id number]. When he ambulates, he walks independently, but holds the right arm up where he has the IV and keeps the left arm straight. His s tride length is shortened, but he is not shuffling. He can turn without losing his balance, but take s a few steps. He had a head CT obtained that shows no evidence of stroke or hemorrhage, but some chronic microvascu lar changes and cerebral atrophy is present. His lithium level is elevated at 2.0. Chemistries generally unremarkable. LDL cholesterol 43. Vishal tocrit 37%. IMPRESSION: Total unit time of 55 minutes. This patient probably has either drug-induced tremor ass ociated with chronic lithium use or an essential tremor rather than a parkinsonian syndrome based on his overall clinical appearance, although, as noted in [place], a dopamine transporter scan could give further insight. That is not critical in the short term. I talked to about all of this with his parish jean. The exacerbating factors could also be stimulant medications such as the Concerta, and whethe r he really needs such stimulants is not entirely clear. I would prefer that he not go back on modaf inil and Concerta if at all possible and just minimize the tremor aspects. It sounds as if being off lithium can create significant problems for him, and weighing the risks and benefits is all we can d o in a circumstance like this. It will be helpful for him to establish with a psychiatric profession al, and that is part of the plan in the future. Jeremiah Conway is the primary care provider, and she wi ll continue to help adjust medications, and then there is apparently a psychiatric nurse practitioner associated with the group who can give further input. As far as his sleeping challenges go, that wi ll remain difficult, and we will see how he does during this hospitalization. Consideration for tim maurice psychiatric consultation is appropriate if available. I am happy to follow up as an outpatient to continue to try to work with him on maximizing tremor control which can have a significant impact on his quality of life. /[id number]/MODL
--- NOTE | 2018-06-10 14:40 | ASMTCMCOM ---
CM Note CM Note Notes: Pts case discussed in tx rounds. Pt goes by Jesus. Pt is a 82 y/o man admitted for bradycardia and dizziness. CM spoke to pts daughter Abbie, whom is a PA (P#: [phone]). Pt currently lives at [facility]. Pt moved from [place] to [place]. Pt is a recent window and lost his unexpectedly August of 2018. Pt has a hx of bipolar. Per daughter, pt had a suicide attempt 25 years ago when he stopped taking all of his meds. CM met w/ pt and he does not endorse any suicidal ideation. Abbie would like referrals made to [facility], [facility]. Pt is current w/ [facility]; PT, OT, RN, MECHANIC AND WELDER. [facility] Therapies are recommending SNF. Referrals sent. CM to follow. Plan: SNF Date Signed: 06/10/2018 02:40 PM Electronically Signed By:ETHAN Frias
[2018-06-10] MEDS ORDERED: NS 1,000 ML IV ONE (15:40)
[2018-06-10] MEDS ORDERED: 1/2 NS 1,000 ML IV SCH (18:45)
[2018-06-10] MEDS ORDERED: SENNOSIDES/DOCUSATE SODIUM TAB PO PRN (20:00)
[2018-06-10] MEDS: POLYETHYLENE GLYCOL 3350 17 GM PKT PO SCH (20:24)
[2018-06-10] MEDS: traZODone 50 MG TAB PO SCH (20:28)
[2018-06-10] MEDS: ASPIRIN EC 81 MG TAB PO SCH (20:28)
[2018-06-10] MEDS: ATORVASTATIN CALCIUM 20 MG TAB PO SCH (20:28)
[2018-06-10] MEDS: FINASTERIDE 5 MG TAB PO SCH (20:28)
[2018-06-10] MEDS: TAMSULOSIN HCL 0.4 MG CAP PO SCH (20:28)
--- NOTE | 2018-06-11 08:28 | NEUROPROG ---
Assessment: 25 min of total unit time today. The patient has probable central tremor or drug-induced tremor as opposed to a parkinsonian syndrome or idiopathic Parkinson's disease. For now, he seems to be doing well without any stimulant medication which would be ideal to keep him off of. There is not enough of a tremor now to really justify putting him on medications such as primidone. With his bradycardia, I would not consider a beta-edmond. I will follow-up with him as needed as an outpatient and they have my contact information. Discharge planning is in process. Subjective: The patient tells me this morning that his tremor continues to be under fairly good control compared to the more recent past. He was able to successfully put in his hearing aids. Objective: Vital Signs Temp Pulse Resp BP Pulse Ox 36.5 C 32 L 15 146/64 H 97 06/11/18 08:13 06/11/18 08:13 06/11/18 08:13 06/11/18 08:13 06/11/18 08:13 Laboratory Results 06/10/18 04:12 06/11/18 06:00 06/10/18 06/11/18 06/12/18 05:59 05:59 05:59 Intake Total 1070 1500 Balance 1070 1500 There is a mild postural and action tremor in the upper extremities and he is somewhat restless in moving the left hand in the left leg a bit but not any true resting tremor. He is able to communicate effectively. He remember seeing me yesterday and can discuss recent events fairly well. He asks appropriate questions. He has no trouble following any commands. He said his sleep continues to be fairly poor. Allergies/Adverse Reactions: carbamazepine [From Tegretol] Allergy (Verified 06/09/18 16:09)
[2018-06-11] MEDS: CALCIUM CARBONATE 500 MG CHEWABLE TAB PO SCH (09:45)
[2018-06-11] MEDS: DULoxetine 30 MG CAP PO SCH (09:45)
[2018-06-11] MEDS: PANTOPRAZOLE SODIUM 40 MG TAB PO SCH (09:45)
[2018-06-11] MEDS: METHYLPHENIDATE HCL 54 MG PO SCH (09:46)
[2018-06-11] MEDS: INSULIN LISPRO 100 UNIT/ML SC SCH ×3 (09:46→18:21)
[2018-06-11] MEDS ORDERED: NS 1,000 ML IV ONE (11:07)
[2018-06-11] MEDS ORDERED: BACITRACIN IRRIGATION/NS 50,000 UNITS/1,000 ML BTL IRR ONE (11:07)
--- NOTE | 2018-06-11 11:11 | SOAPPROG ---
SOAP Progress Note Assessment/Plan: Assessment: 82-year-old male admitted with symptoms of gait instability, worsening tremor and profound bradycardia. Initially was noted to be toxic with respect to his lithium levels. Despite gradually declining lithium levels he continues to be significantly bradycardic. Fortunately, a lot of his symptoms have improved with cessation of some of his stimulant medications. Given ongoing profound bradycardia I do feel that he would benefit from permanent pacing. This was discussed with both he and his daughter who is a physician's public health training assistant. The risks, benefits and alternatives were discussed. We will plan to proceed this afternoon. 06/11/18 11:10 Subjective: He states he is feeling better today. Unfortunately he has not been able to sleep. He has not had any dizziness or lightheadedness. He has been monitored on telemetry with continued episodes of profound bradycardia with heart rates into the high 20s. He has intermittent junctional rhythms as well. His most recent lithium level was therapeutic. Objective: Vital Signs Temp Pulse Resp BP Pulse Ox 36.5 C 32 L 15 146/64 H 97 06/11/18 08:13 06/11/18 08:13 06/11/18 08:13 06/11/18 08:13 06/11/18 08:13 Laboratory Results 06/10/18 04:12 06/11/18 06:00 06/10/18 06/11/18 06/12/18 05:59 05:59 05:59 Intake Total 1070 1500 Balance 1070 1500 Physical Exam - Physical Exam General Appearance: WD/WN EENT: PERRL/EOMI, normal ENT inspection, pharynx normal, TMs normal Neck: non-tender, full range of motion, supple, normal inspection Respiratory: chest non-tender, lungs clear, normal breath sounds Cardiac/Chest: normal peripheral pulses, regular rate, rhythm, systolic murmur ( 2/6 mid peaking systolic ejection murmur left sternal border) Peripheral Pulses: 2+: carotid (R), carotid (L), femoral (R), femoral (L), dorsalis-pedis (R), dorsalis-pedis (L) Abdomen: normal bowel sounds, non-tender, soft Male Genitalia: deferred Rectal: deferred Back: Normal inspection Skin: normal color, warm/dry Lymphatic: no adenopathy Extremities: normal range of motion, non-tender, normal inspection, normal capillary refill Neuro/Psych: no motor/sensory deficits, alert, normal mood/affect, oriented x 3 ICD10 Worksheet Patient Problems: Problems Problem Status Onset Tremor Acute
[2018-06-11] MEDS ORDERED: ceFAZolin 2 GM/DEXTROSE 100 ML IV ONE (13:00)
--- NOTE | 2018-06-11 13:53 | HOSPPROG ---
Hospitalist Progress Note Assessment/Plan: DIAGNOSES: * Acute lithium toxicity manifest as tremors, confusion, dizziness; these symptoms now resolved as lithium level is down * Sinus bradycardia; at this time despite adequate hydration and correction of lithium toxicity, he remains severely bradycardic and pacemaker is indicated * Bipolar disorder - chronic stable * Diabetes mellitus - chronic stable * ADD - chronic stable * Benign essential Hypertension * Peripheral neuropathy PLANS: * I reviewed in detail with Dr. Haresh Villanueva. He is set up for pacemaker placement later today and will need to be monitored here in the hospital potline monitor to ensure that it is working * Will resume lithium tomorrow, he will stay off of losartan which can raise lithium levels; eats outpatient lithium level follow-up * PT/OT Seen by me on hospitalist rounds as well as multidisciplinary rounds I reviewed in detail today with Dr. Haresh Villanueva of Cardiology SUBJECTIVE: Feels "okay" No specific problems overnight Still weak OBJECTIVE Vitals reviewed: Pulse has now through yesterday evening, over night and this morning been mostly in the 30s to low 40s lowest pulse so far 29. Other vitals all stable so far Rotating Equipment Specialist, my review: Marked sinus bradycardia Exam: alert oriented relaxed Neurologic: Some memory deficit otherwise good mentation, no tremor skin warm dry color ok resps not labored lungs clear BSs heart regular abd soft nondistended nontender, bowel sounds present limbs warm, no edema iv site ok Lab data: Sugars in good range Basic metabolic panel normal good lithium 1.2 Objective: Vital Signs Temp Pulse Resp BP Pulse Ox 36.6 C 44 L 23 H 125/57 H 96 06/11/18 11:46 06/11/18 11:46 06/11/18 11:46 06/11/18 11:46 06/11/18 11:46 Laboratory Results 06/10/18 04:12 06/11/18 06:00 06/10/18 06/11/18 06/12/18 06:59 06:59 06:59 Intake Total 1070 1500 Balance 1070 1500 ICD10 Worksheet Patient Problems: Problems Problem Status Onset Tremor Acute - ICD10 Problem Qualifiers (1) Tremor
--- NOTE | 2018-06-11 13:58 | PDPROPOC ---
Sedation Plan of Care Sedation Plan of Care: vital signs stable, mental status noted, patient educated of risks, benefits, alternatives, patient can tolerate sedation ASA Classification: ASA 2 Planned drugs: fentanyl, midazolam Mallampati Score: Class 1 Mallampati Reference Image: Patient passed 3-3-2 rule?: Yes
--- NOTE | 2018-06-11 13:58 | PDHPUP ---
History & Physical Update H&P update statement: This history and physical update is based on an assessment of the patient which was completed after admission or registration (within 24 hours), but prior to the surgery/procedure. H&P update: H&P reviewed & patient examined, no change in patient's condition since H&P completed
[2018-06-11] MEDS ORDERED: LIDO/EPI 1% **for epidural** 30 ML SDV ONE (14:00)
[2018-06-11] MEDS ORDERED: fentaNYL 100 MCG/2 ML INJ ONE ×2 (14:00→14:46)
[2018-06-11] MEDS ORDERED: MIDAZOLAM 2 MG/2 ML VIAL ONE (14:00)
[2018-06-11] MEDS ORDERED: IOPAMIDOL (ISOVUE-300) 50 ML VIAL ONE (14:00)
[2018-06-11] MEDS ORDERED: LIDOCAINE 1% 300 MG/30 ML SDV ONE (14:00)
[2018-06-11] MEDS ORDERED: BUPIVACAINE 0.5% 30 ML SDV ONE (14:01)
[2018-06-11] MEDS ORDERED: PROPOFOL/EMULSION 500 MG/50 ML BOTTLE IV ONE (14:46)
[2018-06-11] MEDS ORDERED: PROPOFOL 200 MG/20 ML VIAL ONE (15:32)
--- NOTE | 2018-06-11 16:29 | CPIP ---
[f rep st] INVASIVE CARDIAC PROCEDURE DATE OF PROCEDURE: 06/11/2018 INDICATIONS: The patient is 82 years old. He is admitted to the hospital with symptoms of dizziness , lightheadedness, and fatigue. He has been monitored on telemetry with evidence of severe sinus nod e dysfunction with frequent heart rates in the 20s. PROCEDURE: Implantation of a dual-chamber pacemaker. TECHNIQUE: Following informed consent, and in the fasting state, the patient was brought to cardiac catheterization laboratory. Immediately prior to the procedure, prophylactic antibiotics were admini stered. The left chest was prepped and draped in the usual sterile fashion. During the initial bereket tion of the patient, he became very combative. As a result, Anesthesia was consulted, and they arriv ed to assist with the remainder of the case. An LMA was placed, and the patient was sedated with pro pofol. At this point, 2% lidocaine was infiltrated in the skin below the left clavicle. A venogram was performed, identifying a widely patent axillary subclavian system. A #10 blade was used to make a 3 cm incision which was carried down to the prepectoral fascia. The pacemaker pocket was then fash ioned. All bleeders were cauterized, and an antibiotic-soaked sponge placed in the pocket. Using 2 separate sticks in the modified Seldinger technique, two individual 0.035 J-wires were positioned in the axillary vein at the level of the first rib. Under fluoroscopy, these were advanced to the super ior vena cava. Using the first of these J wires, a 6-Slovak SafeSheath was placed. The ventricular lead was brought to the field, and using the SafeSheath, this was passed in the right ventricular ape x. Lead was screwed into position, the sheath torn away. Lead was secured to the pacemaker pocket f shauna using 0 Ethibond. Using the remaining J-wire, a second 6-Slovak sheath was placed. The atrial lead was brought to the field and passed in the right atrial appendage under fluoroscopy. The lead w as then screwed into place and the sheath torn away. The atrial lead was then secured to the floor o f the pacemaker pocket skin using 0 Ethibond. At this point, both leads were tested. Adequate captu re and sensing were noted. The antibiotic-soaked sponge was then removed from the pocket. The pocke t was irrigated with antibiotic-containing solution. The pacemaker was brought to the field. Both l rosalba were identified by serial number and affixed to the header according to fuel cell test engineer guidelines. The device and the redundant portions of both leads were then placed in the pocket. The pocket was closed then in 3 layers, initially using 2 layers of interrupted suture with 2-0 and 3-0 Vicryl, and finally a running 3-0 Stratafix for the skin. Steri-Strips and a dry dressing were applied. DEVICE INFORMATION: The pacemaker is a [employer] Assurity MRI, reference #[id number], serial #[id number]. The atrial lead is a [employer] Tendril SDX reference #[id number], serial #[id number]. Th e ventricular lead is a [employer] Tendril SDX reference 2088TC-52, serial #[id number]. In the atrium, capture is 1.3 V at 0.5 msec. With sensed P waves at 2.1 mV. Lead impedance was 583 ohms. In the right ventricle, capture is 0.6 V at 0.5 msec with a lead impedance of 587 ohms and sensed R w aves of 6.2 mV. There was no diaphragmatic stimulation at 10 V. COMPLICATIONS: None. DISPOSITION: The patient will be recovered in the CVC and transferred to the progressive care unit. He will be monitored overnight. I anticipate that he will be discharged tomorrow. /[id number]/MODL
[2018-06-11] MEDS ORDERED: ONDANSETRON 4 MG/2 ML VIAL IVP PRN (16:39)
[2018-06-11] MEDS ORDERED: NALOXONE HCL 0.4 MG/ML INJ IVP PRN (16:39)
[2018-06-11] MEDS ORDERED: fentaNYL 100 MCG/2 ML INJ IVP PRN (16:39)
--- NOTE | 2018-06-11 16:44 | PDANEPAE ---
ANE History of Present Illness Urgent GA for pacemaker. Sick sinus syndrome. Midazolam confused, combative. Pt. agreed to sleeping for procedure. ANE Past Medical History - Cardiovascular History Hx Hypertension: No Hx Chest Pain: No - Pulmonary History Hx COPD: No Hx Oxygen in Use at Home: No Hx Sleep Apnea: Yes - Endocrine History Hx Diabetes: Yes Hypothyroid: No Hyperthyroid: No Obesity: no - Chronic Pain History Chronic Pain: No ANE Review of Systems Review of Systems: - Exercise capacity METS (RN): 3 METS - Pacemaker Pacemaker Education General Manager: [employer] Patient History - Allergies Allergies/Adverse Reactions: carbamazepine [From Tegretol] Allergy (Verified 06/09/18 16:09) - Home Medications Home Medications: Aspirin EC [Aspirin EC 81 mg (*)] 81 mg PO HS 06/09/18 [Last Taken Unknown] Atorvastatin Calcium [Lipitor 20 mg (*)] 20 mg PO HS 06/09/18 [Last Taken ] Calcium Carbonate [Tums 500MG (*)] 250 mg PO DAILY 06/09/18 [Last Taken 05/26/18 ] DULoxetine [Cymbalta 30 MG (*)] 90 mg PO DAILY 06/09/18 [Last Taken 05/26/18] Finasteride [Proscar 5 MG (*)] 5 mg PO HS 06/09/18 [Last Taken 05/26/18] [place] Carbonate ER [Eskalith Cr 450 mg (*)] 450 mg PO HS 06/09/18 [Last Taken 06/08/18 21:00] Losartan Potassium [Cozaar 50 mg (*)] 50 mg PO HS 06/09/18 [Last Taken 05/26/18] Methylphenidate HCl [Concerta] 54 mg PO DAILY 06/09/18 [Last Taken 05/26/18] Modafinil [Provigil] 400 mg PO DAILY 06/09/18 [Last Taken 05/26/18] Nateglinide [Nateglinide] 120 mg PO TIDMEAL 06/09/18 [Last Taken 05/26/18] Pantoprazole Sodium 40 mg PO DAILY 06/09/18 [Last Taken 05/26/18] Polyethylene Glycol 3350 [Miralax 17 gm (*)] 17 gm PO HS 06/09/18 [Last Taken Unknown] Tamsulosin HCl [Flomax 0.4 MG (*)] 0.4 mg PO HS 06/09/18 [Last Taken 05/26/18] diphenhydrAMINE [Benadryl 25 MG (*)] 25 mg PO DAILY PRN 06/09/18 [Last Taken Unknown] metFORMIN HCL [Glucophage 500 mg (*)] 1,000 mg PO DAILY 06/09/18 [Last Taken ] traZODone [traZODONE 50MG (*)] 75 mg PO HS 06/09/18 [Last Taken 06/08/18 21:00] - NPO status NPO Status: no food or drink >8 hours - Anes Hx Anes Hx: no prior problems (Pt unable to give history) - Smoking Hx Smoking Status: Former smoker - Alcohol Use Alcohol Use: Sober ANE Labs/Vital Signs - Labs Result Diagrams: 06/10/18 04:12 06/11/18 06:00 - Vital Signs Blood Pressure: 125/57 Heart Rate: 44 Respiratory Rate: 23 O2 Sat (%): 96 Height: 172.72 cm Weight: 69.4 kg ANE Physical Exam - Airway Neck exam: decreased ROM Mouth exam: julien - Pulmonary Pulmonary: no respiratory distress, no rales or rhonchi - Cardiovascular Cardiovascular: bradycardia - ASA Status ASA Status: III ANE Anesthesia Plan Anesthesia Plan: GA w LMA
--- NOTE | 2018-06-11 16:48 | POSTANESTH ---
Post Anesthetic Evaluation Cardiovascular Status: Normal, Stable, Tx Over/Under Hydration Level of Consciousness/Mental Status: Other, See Comment Pain Control: Adequate, Prn Tx Ordered Nausea/Vomiting Control: Adequate, Prn Tx Ordered Complications Possibly Related to Anesthesia: None Noted (Confusion Improving)
--- NOTE | 2018-06-11 19:34 | CPEKG ---
Test Reason : OPEN Blood Pressure : / mmHG Vent. Rate : 059 BPM Atrial Rate : 059 BPM P-R Int : 199 ms QRS Dur : 094 ms QT Int : 415 ms P-R-T Axes : 025 -19 064 degrees QTc Int : 412 ms Sinus rhythm Borderline left axis deviation Confirmed by Andrea Watkins ([id number]) on 06/11/2018 7:33:40 PM Referred By: Zohaib Álvarez Confirmed By:Andrea Watkins
--- NOTE | 2018-06-11 19:38 | CPEKG ---
Test Reason : OPEN Blood Pressure : / mmHG Vent. Rate : 040 BPM Atrial Rate : 000 BPM P-R Int : 154 ms QRS Dur : 093 ms QT Int : 422 ms P-R-T Axes : 048 -03 070 degrees QTc Int : 345 ms Sinus bradycardia Atrial premature complex Confirmed by Andrea Watkins ([id number]) on 06/11/2018 7:37:54 PM Referred By: Zohaib Álvarez Confirmed By:Andrea Watkins
--- NOTE | 2018-06-11 19:40 | CPEKG ---
Test Reason : OPEN Blood Pressure : / mmHG Vent. Rate : 037 BPM Atrial Rate : 000 BPM P-R Int : 440 ms QRS Dur : 092 ms QT Int : 419 ms P-R-T Axes : 000 -04 060 degrees QTc Int : 329 ms Atrial fibrillation Borderline T wave abnormalities Confirmed by Andrea Watkins ([id number]) on 06/11/2018 7:40:10 PM Referred By: Zohaib Álvarez Confirmed By:Andrea Watkins
[2018-06-11] MEDS: HYDROCODONE/APAP 5/325 TAB PO PRN (20:07)
--- NOTE | 2018-06-11 20:17 | CPEKG ---
Test Reason : OPEN Blood Pressure : / mmHG Vent. Rate : 066 BPM Atrial Rate : 066 BPM P-R Int : 242 ms QRS Dur : 095 ms QT Int : 370 ms P-R-T Axes : -37 -24 054 degrees QTc Int : 388 ms Atrial-paced rhythm Borderline left axis deviation Confirmed by Andrea Watkins ([id number]) on 06/11/2018 8:16:46 PM Referred By: Zohaib Álvarez Confirmed By:Andrea Watkins
[2018-06-11] MEDS: POLYETHYLENE GLYCOL 3350 17 GM PKT PO SCH (20:41)
[2018-06-11] MEDS: ASPIRIN EC 81 MG TAB PO SCH (20:42)
[2018-06-11] MEDS: TAMSULOSIN HCL 0.4 MG CAP PO SCH (20:42)
[2018-06-11] MEDS: FINASTERIDE 5 MG TAB PO SCH (20:42)
[2018-06-11] MEDS: ATORVASTATIN CALCIUM 20 MG TAB PO SCH (20:42)
[2018-06-11] MEDS: traZODone 50 MG TAB PO SCH (20:42)
[2018-06-12] MEDS: HYDROCODONE/APAP 5/325 TAB PO PRN (03:08)
[2018-06-12] MEDS: INSULIN LISPRO 100 UNIT/ML SC SCH ×2 (09:14→12:40)
--- NOTE | 2018-06-12 09:53 | SOAPPROG ---
SOAP Progress Note Assessment/Plan: Assessment: Symptomatic bradycardia with evidence of sinus node dysfunction. He is postoperative day 1 following pacemaker implantation. He is doing well. Device interrogation indicates normal device function. His chest x-ray immediately postprocedure indicated no evidence of pneumothorax. Chest x-ray today is currently pending. Plan: We will plan to review his chest x-ray today. As long as this indicates stability of his device I think that he can be discharged to a care home facility with follow-up in our office in the next 7-10 days. The Tegaderm can be removed from his pacemaker site in 48 hr. I do want him to restrict his movement of his left upper extremity for 2 weeks. He does not need to wear the arm immobilizer during the day however I would like him to wear this at night. 06/12/18 09:53 Subjective: He is doing well today. He is status post pacemaker implantation x1 day. Has no complaints of chest pain or significant pain at the device implantation site. He thinks that his energy level may be a little improved. He denies symptoms of dyspnea. His device was interrogated earlier today with normal device function and excellent thresholds. Objective: Vital Signs Temp Pulse Resp BP Pulse Ox 36.6 C 63 10 L 133/67 H 97 06/12/18 07:03 06/12/18 07:03 06/12/18 07:03 06/12/18 07:03 06/12/18 07:03 Laboratory Results 06/10/18 04:12 06/11/18 06:00 06/11/18 06/12/18 06/13/18 05:59 05:59 05:59 Intake Total 1500 613 Output Total 500 Balance 1500 113 Physical Exam - Physical Exam General Appearance: WD/WN EENT: PERRL/EOMI, normal ENT inspection, pharynx normal, TMs normal Neck: non-tender, full range of motion, supple, normal inspection Respiratory: chest non-tender, lungs clear, normal breath sounds Cardiac/Chest: normal peripheral pulses, regular rate, rhythm, systolic murmur ( 1/6 systolic ejection murmur left sternal border), other (Pacemaker site without significant hematoma) Peripheral Pulses: 2+: carotid (R), carotid (L), femoral (R), femoral (L), dorsalis-pedis (R), dorsalis-pedis (L) Abdomen: normal bowel sounds, non-tender, soft Male Genitalia: deferred Rectal: deferred Back: Normal inspection Skin: normal color, warm/dry Lymphatic: no adenopathy Extremities: normal range of motion, non-tender, normal inspection, normal capillary refill Neuro/Psych: no motor/sensory deficits, alert, normal mood/affect, oriented x 3 ICD10 Worksheet Patient Problems: Problems Problem Status Onset Tremor Acute
[2018-06-12 10:01] VITALS: BP 124/67
[2018-06-12] MEDS: PANTOPRAZOLE SODIUM 40 MG TAB PO SCH (10:11)
[2018-06-12] MEDS: DULoxetine 30 MG CAP PO SCH (10:11)
[2018-06-12] MEDS: CALCIUM CARBONATE 500 MG CHEWABLE TAB PO SCH (10:11)
[2018-06-12] MEDS: METHYLPHENIDATE HCL 54 MG PO SCH (10:15)
--- NOTE | 2018-06-12 11:37 | PDDCSUM ---
Discharge Summary Discharge Summary: DISCHARGE DIAGNOSES: * Symptomatic bradycardia requiring placement of permanent pacemaker which was done here 06/11 * Braymer toxicity, with losartan as a possible contributing causative factor, now resolved * Moderate aortic stenosis newly identified on echocardiogram * Gait instability * Peripheral neuropathy, chronic stable * Essential hypertension * Diabetes mellitus * Type 2 on medication * ADD * Bipolar disorder, chronic stable on medications CONSULTANTS: Dr. Destiny Kinney PROCEDURES: Echocardiogram showing normal left ventricular ejection fraction, moderate aortic stenosis with gradient of 20 Placement of pacemaker [facility] Assurity MRI reference #[id number] serial #[id number], atrial lead [employer] Tendril S DX #[id number] ventricular lead [employer] Tend[employer] SDX serial #[id number] HOSPITAL COURSE SUMMARY: This patient presented to the hospital with dizziness lightheadedness tremor. He stated he thought his symptoms were due to his medications and had stopped taking all of his medications around 5 or 6 days before presenting to the hospital. Indeed as the patient got here he had a lithium level of 2 despite being off lithium for a week. His lithium was held and he was hydrated. The lithium levels eventually came down. The dizzy sensation and tremors all resolved as lithium level came down. Because of the high lithium levels his losartan has been discontinued as that medicine can increase lithium levels. This medicine is also undesirable because of his heart valve issues as below However notably the patient also was having heart rates in the 30s and low 40s. Typically he go for hours at a time with a heart rate in the mid 30s. This did not resolve with improvement in lithium level and with hydration. His TSH is normal. Echocardiogram showed good LV function with some moderate aortic stenosis. The patient was felt to have clear indications for pacemaker and so a pacemaker was placed on June 11. This has been without any complications, and the pacemaker is working well. X-ray shows well seated. At this point the patient is stable for discharge from hospital but he is a bit unsteady on his feet with high fall risk and particularly with wrist to injury to his pacemaker insertion. He will be transferred at this time to senior care facility for further rehabilitation. PENDING TEST RESULTS: None MEDICATION CHANGES: Losartan has been discontinued and the patient should not be started on Onur inhibitors or ARB medications due to use of lithium and also due to his aortic stenosis FOLLOW-UP PLAN: At this time the patient will be transferred from hospital to senior care facility for rehabilitation LIMITATIONS ON ACTIVITY: -NO LIFTING MORE THAN 5 LB WITH LEFT HAND OR RAISING LEFT ARM AT SHOULDER FOR 2 WEEKS -WEAR SHOULDER IMMOBILIZER SLING DURING SLEEP FOR 2 WEEKS -CONTACT DR. DESTINY KINNEY FOR ANY ISSUES RELATED TO HIS PACEMAKER Greater than 35 minutes bedside and care coordination time today
--- NOTE | 2018-06-12 12:16 | PDIAF ---
- Diagnosis Diagnosis: bradycardia new pacer, gait instability, lith toxicity, Code Status: Full Code - Medication Management Discharge Medications: electronically signed and located in the Home Medication List. - Orders Services needed: Registered Nurse, Master Induction Machine Operator, Physical Therapy, Occupational Therapy Diet Recommendation: ADA 2200 consistent carb Diet Texture: Regular Texture Diet Wound Care Instructions: Keep the current dressing on wound through June 14. Contact Dr. Haresh Villanueva [facility] for any concerns regarding pacemaker wound Activity/Weight Bearing Restrictions: No lifting more than 5 lb with left hand for 2 weeks. Do not raise left hand or elbow higher than shoulder for 2 weeks. Keep left shoulder immobilizer on when sleeping or in bed for 2 weeks, okay to take off during other activities. Contact Dr. Haresh villanueva at [facility] for any questions - Labs/Radiology Other Lab Name, Date and Time: [place] level please draw on June 18 - Follow Up Care Current Providers and Referrals: Patient,NotPresent [Unknown] - As per Instructions
--- NOTE | 2018-06-12 12:33 | ASMTLACE ---
[place] Length of stay for Answers: 2 days current admission Acuity / Level of Answers: Yes Care: Did the patient have an inpatient admission? Comorbidities - select Answers: Diabetes (uncontrolled or all that apply controlled) Other Notes: Parkinson's disease # of Emergency department Answers: 1-2 visits in the last 6 months Social determinants Answers: Mental health diagnosis (anxiety, depression, pers onality disorders, etc.) Score: 11 Date Signed: 06/12/2018 12:32 PM Electronically Signed By:Rashmi Dunaway RN
--- NOTE | 2018-06-12 12:36 | ASMTDCNOTE ---
Case Management Discharge Discharge Order Complete? Answers: Yes Patient to Obtain Answers: Other Notes: [facility] Transportation Arranged Answers: Other Notes: Louann arranged w/c transport Transport will Pick (Date 06/12/2018 01:00 PM & Time) Faxed Final Orders Answers: Yes Notes: [facility] Agency/Facility Transfer Answers: Yes Notes: [email or web address] Report Printed & Faxed to Receiving Agency Family Notified Answers: Yes Notes: notified daughter Jerica on the phone Discharge Comments Notes: 06/12/2018 Case Management Note Faxed d/c orders via [employer]. Louann arranged w/c transport. RN to call report. Notified daughter Jerica of d/c. Jerica requested pt have cardiac diabetic diet as well as follow by [facility]. Discussed requests with Louann. Case Management d/c poc: [facility] Date Signed: 06/12/2018 12:34 PM Electronically Signed By:Rashmi Dunaway RN
--- NOTE | 2018-06-12 12:37 | ASDISCHSUM ---
Discharge Information Plan Status:SNF Medically Cleared to Leave:06/12/2018 Discharge Date:06/12/2018 CM D/C Disposition:Jail Facility ADT D/C Disposition:Jail Facility Projected Discharge Date:06/12/2018 11:00 AM Transportation at D/C:Wheelchair Van Discharge Delay Reason: Follow-Up Date:06/12/2018 11:00 AM Discharge Slot: Final Diagnosis: Placement Information Referral Type:*Long Term/SNF Referral ID:[id number] Provider Name:[facility] Address 1:[address] Address 2: City:[place] Selection Factors: State:[place] Referral Type:*Home Health Care Services Referral ID:[id number] Provider Name: Address 1: Phone Number: Address 2: Fax Number: City: Selection Factors: State: Patient Contact Information Contact Name:AMEE Relationship:Daughter Address: Home Phone: City: Alternate Phone: State/Zip Code: Email: Financial Information Financial Class:Medicare Primary Plan Desc:MEDICARE INPATIENT Primary Plan Number:[id number] Secondary Plan Desc: Secondary Plan Number: Assessment Information LACE LACE Length of stay for Answers: 2 days current admission Acuity / Level of Answers: Yes Care: Did the patient have an inpatient admission? Comorbidities - select Answers: Diabetes (uncontrolled or all that apply controlled) Other Notes: Parkinson's disease # of Emergency department Answers: 1-2 visits in the last 6 months Social determinants Answers: Mental health diagnosis (anxiety, depression, pers onality disorders, etc.) Score: 11 Date Signed: 06/12/2018 12:32 PM Electronically Signed By:Rashmi Dunaway RN [facility] Progress Note CM Note CM Note Notes: Pts case discussed in tx rounds. Pt goes by Jesus. Pt is a 82 y/o man admitted for bradycardia and dizziness. CM spoke to pts daughter Abbie, whom is a PA (P#: [phone]). Pt currently lives at [facility]. Pt moved from [place] to [place]. Pt is a recent window and lost his unexpectedly August of 2018. Pt has a hx of bipolar. Per daughter, pt had a suicide attempt 25 years ago when he stopped taking all of his meds. CM met w/ pt and he does not endorse any suicidal ideation. Abbie would like referrals made to [facility] Pt is current w/ [facility]; PT, OT, RN, CMO & PRESIDENT. Pts PCP is Soledad Conway out of [facility]. Therapies are recommending SNF. Referrals sent. CM to follow. Plan: SNF Date Signed: 06/10/2018 02:40 PM Electronically Signed By:ETHAN Frias Case Management Discharge Plan Note Case Management Discharge Discharge Order Complete? Answers: Yes Patient to Obtain Answers: Other Notes: [facility] Transportation Arranged Answers: Other Notes: Louann arranged w/c transport Transport will Pick (Date 06/12/2018 01:00 PM & Time) Faxed Final Orders Answers: Yes Notes: [facility] Agency/Facility Transfer Answers: Yes Notes: [facility] Report Printed & Faxed to Receiving Agency Family Notified Answers: Yes Notes: notified teja Pizano on the phone Discharge Comments Notes: 06/12/2018 Case Management Note Faxed d/c orders via [email or web address]. Louann arranged w/c transport. RN to call report. Notified teja Pizano of d/c. Jerica requested pt have cardiac diabetic diet as well as follow by [facility]. Discussed requests with Louann. Case Management d/c poc: [facility] Date Signed: 06/12/2018 12:34 PM Electronically Signed By:Rashmi Dunaway RN Intervention Information
[2018-06-12] MEDS ORDERED: LITHIUM CARBONATE ER 450 MG TAB PO SCH (21:00)
== END 2018-06-12 13:15 | DRG 244 ==
LOC: F2W 17:49
PROVIDERS: ADMIT Internal Medicine Cardiovascular Disease; ATTEND Internal Medicine
PROC: 02H63JZ Insertion of Pacemaker Lead into Right Atrium, Percutaneous Approach (ICD-10-PCS; principal; 2018-06-11)
PROC: 0JH606Z Insertion of Pacemaker, Dual Chamber into Chest Subcutaneous Tissue and Fascia, Open Approach (ICD-10-PCS; principal; 2018-06-11)
PROC: 02HK3JZ Insertion of Pacemaker Lead into Right Ventricle, Percutaneous Approach (ICD-10-PCS; principal; 2018-06-11)
DX: R00.1 Bradycardia, unspecified (principal); T56.894A Toxic effect of other metals, undetermined, initial encounter; I35.0 Nonrheumatic aortic (valve) stenosis; R26.9 Unspecified abnormalities of gait and mobility; G62.9 Polyneuropathy, unspecified; I10 Essential (primary) hypertension; E11.9 Type 2 diabetes mellitus without complications; F31.9 Bipolar disorder, unspecified; F98.8 Other specified behavioral and emotional disorders with onset usually occurring in childhood and adolescence; G20 Parkinson's disease; N40.0 Benign prostatic hyperplasia without lower urinary tract symptoms; Z79.4 Long term (current) use of insulin
CPT/HCPCS: 84484-ER; 97116-GP; 97162-GP; 97166-GO; 97530-GP; 97535-GO; C1785; C1898; J0690; J2250; J2704; J3010; Q9967

== ENCOUNTER → 2018-07-13 | Outpatient (CLI) | payer OTHER | LOC: BHFA 14:00 | PROVIDERS: ATTEND Internal Medicine Interventional Cardiology | DX: R09.89 Other specified symptoms and signs involving the circulatory and respiratory systems (principal) ==

== ENCOUNTER 2018-08-13 03:43 | Observation (INO) | payer OTHER, BC | END 2018-08-14 15:44 | disposition home or self-care (01) | LOC: F2W 07:52 ==